=== PATIENT | male | born 1955 | race Caucasian/White ===

== ENCOUNTER 2018-05-11 19:46 | Emergency (ER) | END 2018-05-12 00:22 | disposition home or self-care (01) ==

== ENCOUNTER 2018-11-25 10:27 | Emergency (ER) | payer MEDICAID, OTHER ==
[~2018-11-25 10:27] MED LIST: CIPR500T4 PO; IBUP-1542 PO; PHEN-538 PO
[2018-11-25 10:51] VITALS: BP 118/71; PULSE 66; RESP 18
== END 2018-11-25 10:53 | disposition home or self-care (01) ==
LOC: E/R 10:27
DX: E11.319 Type 2 diabetes mellitus with unspecified diabetic retinopathy without macular edema (principal); Z79.82 Long term (current) use of aspirin; Z79.84 Long term (current) use of oral hypoglycemic drugs
CPT/HCPCS: 80048; 81001; 82962; 85025; Z7502; Z7610; 99283